=== PATIENT | male | born 1980 | race Caucasian/White ===

== ENCOUNTER 2020-02-14 18:50 | Emergency (ER) | payer MEDICAID, SELFPAY ==
[2020-02-14 18:54] VITALS: BP 144/86; PULSE 89; RESP 16; TEMP 36.9; O2SAT 99; BMI 20.5
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
--- NOTE | 2020-02-14 19:28 | PC.NURSE ---
pt given an icepack to place on face for comfort
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
[2020-02-14 20:40] VITALS: BP 137/79; PULSE 82; RESP 16; TEMP 36.9; O2SAT 98
== END 2020-02-14 20:42 | disposition home or self-care (01) ==
PROVIDERS: Emergency Provider Family Medicine; PCP Family Medicine
DX: S02.2XXA Fracture of nasal bones, initial encounter for closed fracture (principal); Y04.0XXA Assault by unarmed brawl or fight, initial encounter; F17.210 Nicotine dependence, cigarettes, uncomplicated
CPT/HCPCS: 70450; 70486; 72125; 99282